=== PATIENT | male | born 1970 | race Caucasian/White ===

== ENCOUNTER 2024-11-19 11:14 | Day surgery (SDC) | payer BC ==
[~2024-11-19] VITALS: Ht 193 cm; Wt 27.2 kg
[2024-11-19] MEDS ORDERED: EUTHYROX175 MC1 (11:26)
[2024-11-19] MEDS ORDERED: LOSA50 (11:26)
[2024-11-19] MEDS ORDERED: ROSUVASTATIN CA40 MG (11:26)
[2024-11-19 13:06] VITALS: BP 110/80
== END 2024-11-19 12:58 | disposition home or self-care (01) ==
LOC: ORSCSDS 11:14
PROVIDERS: Internal Medicine Gastroenterology
PROC: 0DBP8ZX Excision of Rectum, Via Natural or Artificial Opening Endoscopic, Diagnostic (ICD-10-PCS; principal; 2024-11-19 12:45)
DX: Z12.11 Encounter for screening for malignant neoplasm of colon (principal); Z83.719 Family history of colon polyps, unspecified; D12.8 Benign neoplasm of rectum; K57.30 Diverticulosis of large intestine without perforation or abscess without bleeding; Z79.899 Other long term (current) drug therapy
CPT/HCPCS: 88305; J2704; J7120